=== PATIENT | female | born 1950 | race African-American/Black ===

== ENCOUNTER 2016-12-13 14:28 | Emergency (ER) | payer BC ==
--- NOTE | 2016-12-13 15:06 | ED Physician Chart ---
ED Chief Complaint/HPI - Patient Information Date Seen:: 12/13/16 Time Seen:: 14:47 Chief Complaint:: COUGH History of Present Illness:: THIS IS A 66 YO FEMALE WITH A RECURRENT DEEP COUGH AND SOB WITHOUT CHEST PAIN. SHE HAS BEEN ON PREDNISONE AND HAS A HISTORY OF ASTHMA. SHE HAS A HISTORY Allergies:: Allergies Allergy/AdvReac Type Severity Reaction Status Date / Time Sulfa (Sulfonamide Allergy Verified 12/13/16 14:44 Antibiotics) Vitals:: Vital Signs - 8 hr 12/13/16 14:44 Temp 98.3 F HR 107 RR 24 BP 221/95 O2 Sat % 95 Historian:: Patient, Family Member Review:: Nurse's Note Reviewed ED Review of Systems - Review of Systems General/Constitutional: No fever, No chills, No weight loss, No weakness, No diaphoresis, No edema, No loss of appetite Skin: No skin lesions, No rash, No bruising Head: No headache, No light-headedness Eyes: No loss of vision, No pain, No diplopia ENT: No earache, No nasal drainage, No sore throat, No tinnitus Neck: No neck pain, No swelling, No thyromegaly, No stiffness, No mass noted Cardio Vascular: No chest pain, No palpitations, No PND, No orthopnea, No edema Pulmonary: SOB, Cough, No sputum, No wheezing GI: No nausea, No vomiting, No diarrhea, No pain, No melena, No hematochezia, No constipation, No hematemesis G/U: No dysuria, No frequency, No hematuria Musculoskeletal: No bone or joint pain, No back pain, No muscle pain Endocrine: No polyuria, No polydipsia Psychiatric: No prior psych history, No depression, No anxiety, No suicidal ideation Hematopoietic: No bruising, No lymphadenopathy Allergic/Immuno: No urticaria, No angioedema Neurological: No syncope, No focal symptoms, No weakness, No paresthesia, No headache, No seizure, No dizziness, No confusion, No vertigo ED Past Medical History - Past Medical History Obtainable: Yes Past Medical History: HTN, DM, Asthma/COPD Family History: None Social History: Non Smoker, No Alcohol, No Drug Use, Surgical History: Hysterectomy, other (BILATERAL HIP JOINT REPLACEMENT) Psychiatricy History: None Family Medical History - Family Member Grandmother History Unknown: Yes ED Physical Exam - Physical Examination General/Constitutional: Awake, Well-developed, well-nourished, Alert, No distress, GCS 15, Non-toxic appearing, Ambulatory Head: Atraumatic Eyes: Lids, conjuctiva normal, PERRL, EOMI Skin: Nl inspection, No rash, No skin lesions, No ecchymosis, Well hydrated, No lymphadenopathy ENMT: External ears, nose nl, Nasal exam nl, Lips, teeth, gums nl Neck: Nontender, Full ROM w/o pain, No JVD, No nuchal rigidity, No bruit, No mass, No stridor Respiratory: Nl effort/Exclusion, No Wheeze/Rhonchi/Rales Other Respiratory comments:: THERE IS MILD CONGESTION BILATERALLY Cardio Vascular: RRR, No murmur, gallop, rubs, NL S1 S2 GI: No tenderness/rebounding/guarding, No organomegaly, No hernia, Normal BS's, Nondistended, No mass/bruits, No McBurney tenderness : No CVA tenderness Extremities: No tenderness or effusion, Full ROM, normal strength in all extremities, No edema, Normal digits & nails Neuro/Psych: Alert/oriented, DTR's symmetric, Normal sensory exam, Normal motor strength, Judgement/insight normal, Mood normal, Normal gait, No focal deficits Misc: normal gait, Normal back, No paraspinal tenderness ED Labs/Radiology/EKG Results - Lab Results Results: Abnormal Lab Results 12/13/16 12/13/16 12/13/16 14:51 15:05 15:05 WBC RBC Hgb Hct MCV MCH MCHC Differential RDW Plt Count MPV Band Neutrophils % Neutrophils (Manual) Lymphocytes Monocytes Eosinophils Basophils Platelet Estimate RBC Morph Micro Appear PT 9.7 INR 0.93 Specimen Source Arterial Sample Site Right Radial pH 7.46 H pCO2 38.0 pO2 72.0 L HCO3 27.3 H Base Excess 3.1 H O2 Saturation 95.0 Todd Test YES Vent Rate NA Inspired O2 21 Tidal Volume NA PEEP NA Pressure (ins/psv/peep) NA Critical Value PW Sodium Potassium Chloride Carbon Dioxide Anion Gap BUN Creatinine Est GFR ( Amer) Est GFR (Non-Af Amer) BUN/Creatinine Ratio Glucose Calcium Total Bilirubin AST ALT Alkaline Phosphatase Troponin I Total Protein Albumin Globulin Albumin/Globulin Ratio Triglycerides 91 Cholesterol 259 H LDL Cholesterol Direct 160 HDL Cholesterol 88 09/11/17 09/11/17 09/11/17 15:05 15:05 15:05 WBC 16.3 H D RBC 4.63 Hgb 13.2 Hct 40.6 D MCV 87.6 MCH 28.5 MCHC Differential 32.6 RDW 14.5 Plt Count 182 MPV 8.7 Band Neutrophils % 1 Neutrophils (Manual) 77 Lymphocytes 13 L Monocytes 7 Eosinophils 1 Basophils 1 Platelet Estimate ADEQUATE RBC Morph Micro Appear NORMAL PT INR Specimen Source Sample Site pH pCO2 pO2 HCO3 Base Excess O2 Saturation Todd Test Vent Rate Inspired O2 Tidal Volume PEEP Pressure (ins/psv/peep) Critical Value Sodium 135 L Potassium 3.6 Chloride 104 Carbon Dioxide 23.0 Anion Gap 11.6 BUN 25 Creatinine 1.2 Est GFR ( Amer) 58.2 Est GFR (Non-Af Amer) 48.1 BUN/Creatinine Ratio 20.8 Glucose 173 H Calcium 9.7 Total Bilirubin 0.9 AST 68 H ALT 238 H Alkaline Phosphatase 79 Troponin I 0.01 Total Protein 7.1 Albumin 3.9 Globulin 3.2 Albumin/Globulin Ratio 1.2 Triglycerides Cholesterol LDL Cholesterol Direct HDL Cholesterol - Radiology Results Results: CHEST CT SCAN = 4MM NODULE NOTED ATELECTIC LUNG BASE ED Assessment - Assessment General Assessment: BRONCHITIS ED Septic Shock - . Is Septic Shock (SBP<90, OR Lactate>4 mmol\L) present?: No - <6hrs of presentation: Vital Signs: Vital Signs - 8 hr 12/13/16 14:44 Temp 98.3 F HR 107 RR 24 BP 221/95 O2 Sat % 95 ED Reassessment (Disposition) - Reassessment Reassessment Condition:: Improved - Diagnosis Diagnosis:: ACUTE BRONCHITIS - Aftercare/Follow up Instructions Aftercare/Follow-Up Instructions:: Counseled pt regarding lab results/diagnosis & need follow up, Refer to Discharge Instructions, Counseled pt & family regarding lab results/diagnosis & need follow up - Patient Disposition Discharge/Transfer:: Home Condition at Disposition:: Improved ED Discharge Plan - Patient Disposition Admit/Discharge/Transfer: PT DISCHARGED HOME Condition at Disposition: Improved
[2016-12-13 15:19] LABS: HEMOGLOBIN 13.2 gm/dL (11.7-15.5); MEAN CELL VOLUME 87.6 fl (81-100); MEAN CORPUSCULAR HEMOGLOBIN 28.5 pg (27.0-31.0); MEAN CORPUSCULAR HGB CONC 32.6 pg (28.0-36.0); MEAN PLATELET VOLUME 8.7 fl; PLATELET COUNT 182 Th/cmm (150-400); RED BLOOD COUNT 4.63 Mil/cmm (3.80-5.10); RED CELL DISTRIBUTION WIDTH 14.5 % (11.5-20.0)
[2016-12-13 15:23] LABS: HEMATOCRIT 40.6 % (35.0-45.0); WHITE BLOOD COUNT 16.3 Th/cmm (4.8-10.8)
[2016-12-13 15:27] LABS: INR 0.93 (0.5-1.4); PROTHROMBIN TIME (TEST) 9.7 SECONDS (9.5-11.5)
[2016-12-13 15:29] LABS: ALB/GLOB RATIO 1.2 (1.0-1.8); ANION GAP 11.6 (7.0-16.0); BILIRUBIN,TOTAL 0.9 mg/dL (0.3-1.0); BUN/CREATININE RATIO 20.8; CALCIUM SERUM 9.7 mg/dL (8.6-10.3); CREATININE - SERUM 1.2 mg/dL (0.6-1.2); POTASSIUM SERUM 3.6 mEq/L (3.5-5.1)
[2016-12-13 15:30] LABS: CHOLESTEROL 259 mg/dL (<200); TRIGLYCERIDES 91 mg/dL (<150)
[2016-12-13 15:50] LABS: HCO3 27.3 mEq/L (20.0-26.0); pH 7.46 (7.35-7.45)
[2016-12-13 15:51] LABS: ABG SOURCE Arterial; ALLEN TEST YES; BE(B) 3.1 mEq/L (-3.0-3.0); CRITICAL VALUES REPORTED BY PW; FIO2 21
[2016-12-13 15:56] LABS: BAND NEUTROPHILE 1 % (0-10); BASOPHIL 1 % (0-3); EOSINOPHIL 1 % (0-5); NEUTROPHILS 77 % (40-80); PLATELET ESTIMATE ADEQUATE (NORMAL); TOTAL CELLS COUNTED 100
--- NOTE | 2016-12-13 15:56 | Diagnostic Imaging Report ---
CT Chest without IV contrast HISTORY: Chronic cough COMPARISON: Chest x-ray on 04/27/2015. Technique: Axial images were obtained from the base of the neck to the upper abdomen without administration of IV contrast. Coronal reconstructions were made. Total DLP 288 CTI 8 Findings: No evidence of mediastinal lymphadenopathy. Note that evaluation of the mediastinum is limited due to lack of IV contrast. Heart size is normal. No pericardial effusion. No evidence of any aortic aneurysm. Hypoventilatory and atelectatic changes of the lungs are noted. There is a 4 mm nodular opacity right upper lobe (image 21, series 3). No focal consolidation or effusions. The upper abdomen demonstrates what appear to be ingested pills within the stomach. Gallstones are noted. Degenerative changes of the spine are noted with spinal scoliosis. IMPRESSION: Hypoventilatory atelectatic lung changes. No focal consolidation identified. 4 mm right apical nodular opacity nonspecific, and may be due to infectious or inflammatory process. Follow-up surveillance CT in 6-12 months is recommended. No pleural effusions. Gallstones. Mildly distended stomach with what appear to be ingested pills. Degenerative changes of the spine with scoliosis.
== END 2016-12-13 16:15 | disposition home or self-care (01) ==
LOC: ER 14:28
DX: J20.9 Acute bronchitis, unspecified (principal); I10 Essential (primary) hypertension; E11.9 Type 2 diabetes mellitus without complications; J45.909 Unspecified asthma, uncomplicated; J44.1 Chronic obstructive pulmonary disease with (acute) exacerbation
CPT/HCPCS: 99285; 96372 ×2; 82803; 36600; 71250; 84484; 36415; 84443; 86592; 85007; 85027; 85610; 83036; 80053; 80061; J0696; J2930; J2001

== ENCOUNTER 2017-10-08 07:26 | Emergency (ER) | payer BC, MEDICARE ==
--- NOTE | 2017-10-08 08:23 | ED Physician Chart ---
ED Chief Complaint/HPI - Patient Information Date Seen:: 10/08/17 Time Seen:: 08:17 Chief Complaint:: RIGHT SHOULDER PAIN History of Present Illness:: THIS IS A 67 YR OLD HYPERTENSIVE DIABETIC WHO STATES THAT SHE HAD A FALL LAST NIGHT AND NOW CONCERNED ABOUT RIGHT SHOULDER PAIN. Allergies:: Allergies Allergy/AdvReac Type Severity Reaction Status Date / Time Sulfa (Sulfonamide Allergy Verified 12/13/16 14:44 Antibiotics) Vitals:: Vital Signs - 8 hr 10/08/17 07:42 Temp 97.9 F HR 68 RR 18 BP 129/61 O2 Sat % 97 Historian:: Patient Review:: Nurse's Note Reviewed, Old Chart Reviewed ED Review of Systems - Review of Systems General/Constitutional: No fever, No chills, No weight loss, No weakness, No diaphoresis, No edema, No loss of appetite Skin: No skin lesions, No rash, No bruising Head: No headache, No light-headedness Eyes: No loss of vision, No pain, No diplopia ENT: No earache, No nasal drainage, No sore throat, No tinnitus Neck: No neck pain, No swelling, No thyromegaly, No stiffness, No mass noted Cardio Vascular: No chest pain, No palpitations, No PND, No orthopnea, No edema Pulmonary: No SOB, No cough, No sputum, No wheezing GI: No nausea, No vomiting, No diarrhea, No pain, No melena, No hematochezia, No constipation, No hematemesis G/U: No dysuria, No frequency, No hematuria Musculoskeletal: Bone or joint pain (RIGHT SHOULDER PAIN), No bone or joint pain , No back pain, No muscle pain Endocrine: No polyuria, No polydipsia Psychiatric: No prior psych history, No depression, No anxiety, No suicidal ideation Hematopoietic: No bruising, No lymphadenopathy Allergic/Immuno: No urticaria, No angioedema Neurological: No syncope, No focal symptoms, No weakness, No paresthesia, No headache, No seizure, No dizziness, No confusion, No vertigo ED Past Medical History - Past Medical History Obtainable: Yes Past Medical History: HTN, DM, Asthma/COPD Family History: None Social History: Non Smoker, No Alcohol, No Drug Use, Surgical History: Hysterectomy, other (BILATERAL HIP JOINT REPLACEMENTS.) Psychiatricy History: None Medication: Reviewed Family Medical History - Family Member Grandmother History Unknown: Yes ED Physical Exam - Physical Examination General/Constitutional: Awake, Well-developed, well-nourished, Alert, No distress, GCS 15, Non-toxic appearing, Ambulatory Head: Atraumatic Eyes: Lids, conjuctiva normal, PERRL, EOMI Skin: Nl inspection, No rash, No skin lesions, No ecchymosis, Well hydrated, No lymphadenopathy ENMT: External ears, nose nl, Nasal exam nl, Lips, teeth, gums nl Neck: Nontender, Full ROM w/o pain, No JVD, No nuchal rigidity, No bruit, No mass, No stridor Respiratory: Nl effort/Exclusion, Clear to Auscultation, No Wheeze/Rhonchi/Rales Cardio Vascular: RRR, No murmur, gallop, rubs, NL S1 S2 GI: No tenderness/rebounding/guarding, No organomegaly, No hernia, Normal BS's, Nondistended, No mass/bruits, No McBurney tenderness : No CVA tenderness Extremities: No tenderness or effusion (RIGHT SHOULDER TENDERNESS WITH NORMAL ROM BUT PAINFUL. SENSORY AND CIRCULATION WERE BOTH NORMAL.), Full ROM, normal strength in all extremities, No edema, Normal digits & nails Neuro/Psych: Alert/oriented, DTR's symmetric, Normal sensory exam, Normal motor strength, Judgement/insight normal, Mood normal, Normal gait, No focal deficits Misc: Normal back, No paraspinal tenderness ED Labs/Radiology/EKG Results - Radiology Results Results: RIGHT SHOULDER X-RAY = NAD ED Assessment - Assessment General Assessment: CONTUSION OF THE RIGHT SHOULDER ED Septic Shock - . Is Septic Shock (SBP<90, OR Lactate>4 mmol\L) present?: No - <6hrs of presentation: Vital Signs: Vital Signs - 8 hr 10/08/17 07:42 Temp 97.9 F HR 68 RR 18 BP 129/61 O2 Sat % 97 ED Reassessment (Disposition) - Reassessment Reassessment Condition:: Improved - Diagnosis Diagnosis:: RIGHT SHOULDER CONTUSION - Aftercare/Follow up Instructions Aftercare/Follow-Up Instructions:: Counseled pt regarding lab results/diagnosis & need follow up, Refer to Discharge Instructions, Counseled pt & family regarding lab results/diagnosis & need follow up - Patient Disposition Discharge/Transfer:: Home Condition at Disposition:: Improved ED Discharge Plan - Patient Disposition Admit/Discharge/Transfer: PT DISCHARGED HOME Condition at Disposition: Improved
--- NOTE | 2017-10-08 09:49 | Diagnostic Imaging Report ---
Right shoulder (3 views) HISTORY: Pain No acute bony abnormalities. No fractures. No dislocation. There is a small calcific density adjacent to the lateral aspect of the humeral head consistent with changes of calcific tendinitis. Chronic and hypertrophic degenerative changes noted about the acromioclavicular joint. IMPRESSION: 1. No acute abnormalities 2. Chronic and degenerative changes 3. Small calcification within the soft tissues adjacent to the lateral aspect of the humeral head consistent with calcific tendinitis
== END 2017-10-08 09:14 | disposition home or self-care (01) ==
LOC: ER 07:26
DX: S40.011A Contusion of right shoulder, initial encounter (principal); I10 Essential (primary) hypertension; E11.9 Type 2 diabetes mellitus without complications; J45.909 Unspecified asthma, uncomplicated; Z88.2 Allergy status to sulfonamides; Z98.890 Other specified postprocedural states; W19.XXXA Unspecified fall, initial encounter; Y93.89 Activity, other specified; Y92.89 Other specified places as the place of occurrence of the external cause; Y99.8 Other external cause status
CPT/HCPCS: 99284; 73030; J1885; Z7502